=== PATIENT | male | born 1935 | race Caucasian/White ===

== ENCOUNTER 2017-08-16 10:47 | Outpatient (CLI) | payer MEDICARE ==
--- NOTE | 2017-08-16 15:40 | CT ---
CTA OF THE ABDOMEN AND PELVIS WITH BILATERAL LOWER EXTREMITY RUNOFF UTILIZING IV CONTRAST AND 3D REF ORMATTED IMAGING: INDICATION: Bilateral leg pain for 3 years. FINDINGS: ABDOMEN: There is mild bibasilar atelectasis. No focal hepatic lesion is evident. The adrenal glands appear within normal limits. There is a 6 mm oval hypodensity seen within the pancreatic head on image 67 of series 2. There is mild renal cortical thinning bilaterally. No hydronephrosis is evident. No pathologically enlarged lymph nodes are evident. PELVIS: The prostate is mildly enlarged measuring 4.9 cm. There is scattered diverticula involving the colon without evidence of active diverticulitis. There is a normal appendix in the right lower quadrant. Small bowel appears within normal limits. No fr ee fluid is evident. There are fat-containing bilateral inguinal hernias. OSSEOUS STRUCTURES: There is diffuse osteopenia. There is scattered degenerative and osteoarthritic change. VASCULATURE: There are moderate atherosclerotic calcifications involving the abdominal aorta. There is mild narrowing involving the origins of the celiac and SMA. There is mild narrowing involv ing the proximal left and right renal artery. There is mild narrowing involving the origin of the I MA. There is mild atherosclerotic narrowing involving the distal right common iliac artery as well as th e proximal and distal aspect of the right external iliac artery. Right common femoral artery is wid margarito patent. The bifurcation is patent. The proximal profunda artery is widely patent. There is at herosclerotic irregularity involving the course of the right superficial femoral artery. There is h igh-grade stenosis involving the right superficial femoral artery at the level of the adductor hiatu s. More distally within the right superficial femoral artery is a region of complete occlusion. T here is reconstitution of flow at the level of the proximal right popliteal artery. The anterior ti bial artery and tibioperoneal trunk appear patent. There is 3-vessel runoff to the level of the rig ht ankle. Left common iliac artery demonstrates mild atherosclerotic irregularity. There is mild narrowing in volving the origin of the left external iliac artery at the bifurcation. There is moderate narrowin g involving the distal left external iliac artery on image 122 series 2. There is mild atherosclero tic irregularity involving the left common femoral artery. The bifurcation is widely patent. There is mild narrowing involving the proximal left superficial femoral artery. There is complete occlus ion of the distal left superficial femoral artery just proximal to the adductor hiatus. There is re constitution of flow within the proximal popliteal artery on the left. The tibioperoneal trunk and anterior tibial artery appear patent. There is 3-vessel runoff to the level of the ankle. IMPRESSION: 1. 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 2. Mild atherosclerotic narrowing involving the origins of the celiac, SMA, and both renal arteries . 3. Colonic diverticulosis. 4. Prostate enlargement. 5. Fat-containing inguinal hernias. POS: NIKKY
[2017-08-16] MEDS ORDERED: Iopamidol 370 76% 100 ML VIAL ONE (16:39)
== END 2017-08-16 10:48 | disposition home or self-care (01) ==
LOC: CT 10:47
PROVIDERS: ATTEND Thoracic Surgery (Cardiothoracic Vascular Surgery)
DX: R09.89 Other specified symptoms and signs involving the circulatory and respiratory systems (principal); I70.213 Atherosclerosis of native arteries of extremities with intermittent claudication, bilateral legs; I70.1 Atherosclerosis of renal artery; K57.10 Diverticulosis of small intestine without perforation or abscess without bleeding; N40.0 Benign prostatic hyperplasia without lower urinary tract symptoms; K40.90 Unilateral inguinal hernia, without obstruction or gangrene, not specified as recurrent
CPT/HCPCS: 75635

== ENCOUNTER 2018-08-14 11:33 | Outpatient (CLI) | payer MEDICARE ==
--- NOTE | 2018-08-14 16:04 | MRI ---
MRI BRAIN WITH AND WITHOUT CONTRAST: DATE: 08/14/18 HISTORY: 82-year-old male with R51, occipital headache. COMPARISON: No prior MRIs of the brain. There is a CT angiogram of the neck of 04/06/17. TECHNIQUE: Multiple sequences obtained in axial, sagittal, and coronal planes; pre and post IV injection of gado linium-based contrast agent. FINDINGS: What was thought to be a vascular mass in the right foramen magnum on that previous CTA (without the benefit of a noncontrast CT scan to compare with the postcontrast scan), is demonstrated by this MRI to be an approximately 3.2 x 2.9 x 1.4 cm heterogeneously strongly enhancing dural based extra-axial mass arising from the right inner cortical surface of the basiocciput, with anteror edge of tumor at midline at the inferior tip of the clivus, and posterior aspect at the posterior edge of the right oc cipital condyle. It chronically compresses, deforms, and displaces to the left, the medulla and its j unction with the upper cervical spinal cord. The mass is isointense to brain parenchyma on precontras t T1 WI, heterogeneously slightly hyperintense relative to brain parenchyma on FLAIR, and heterogeneo usly very hypointense relative to the brain parenchyma on T2 WI. It contains numerous small calcifica tions. There is no vasogenic edema in the adjacent, displaced brainstem or right cerebellar tonsil. Incidentally, review of the CT angiogram of 04/06/17 demonstrates a tiny round metallic foreign body embedded within the posterior aspect of the right pinna. This causes magnetic susceptibility blowout artifact, which does not affect the images of the brain parenchyma. There is mild to moderate dilation of the lateral and third ventricles. This is probably on an ex vac uo basis due to central parenchymal volume loss rather than a mild case of normal pressure hydrocepha cristian. Chronic ischemic white matter changes in the periventricular white matter are mild. There is dif fuse brain parenchymal volume loss. No abnormal intra-axial enhancement, mass, mass effect, midline s hift, or extra-axial fluid collection. IMPRESSION: 1. A moderate sized right-sided calcified meningioma occupying at least 50% of the cross-sectional a rose of foramen magnum, chronically impinging on and displacing the medulla and upper spinal cord to t he left. No associated vasogenic edema. 2. Age-related involutional changes of the brain. ADWOA Giraldo POS: NIKKY
== END 2018-08-14 11:34 | disposition home or self-care (01) ==
LOC: BICMRI 11:33
PROVIDERS: ATTEND Family Medicine
DX: R51 Headache (principal); D32.0 Benign neoplasm of cerebral meninges
CPT/HCPCS: 70553

== ENCOUNTER 2019-07-02 19:40 | Emergency (ER) | payer MEDICARE ==
[2019-07-02 21:21] LABS: #Lymphocytes 2.1 thou/uL (1.20-3.40); #Monocytes 0.8 thou/uL (0.11-0.59); #Neutrophils 6.8 thou/uL (1.40-6.50); %Basophils 0.3 % (0.0-1.0); %Eosinophils 0.3 % (0.0-10.0); %Lymphocytes 21.4 % (21.0-51.0); %Monocytes 8.5 % (0.0-10.0); %Neutrophils 69.6 % (42.0-75.0); Hemoglobin 13.6 g/dL (14.0-18.0); Mean Corpuscular Hemoglobin 29.6 pg (27.0-31.0); Mean Corpuscular Volume 89.8 fL (78.0-98.0); Mean Platelet Volume 7.9 fL (7.4-10.4); Platelet Count 191 thou/uL (130-400); RBC Distribution Width 12.1 % (11.5-14.5); Red Blood Cell (RBC) Count 4.59 mill/uL (4.70-6.10); White Blood Cell (WBC) Count 9.7 thou/uL (4.8-10.8)
[2019-07-02 21:27] LABS: Bacteria/HPF None Seen HPF (None Seen); Bilirubin Negative (Negative); Calcium Oxalate Crystals 3+ HPF (None Seen); Clarity Clear (Clear); Glucose, Urine (Dipstick) Normal (Negative); Leukocyte 75 Leu/uL (Negative); Nitrite Negative (Negative); Protein, Urine (Dipstick) 30 mg/dL (Neg-Trace); Squamous Epithelial None Seen HPF (0-3); Urobilinogen 3 mg/dL (Less than 2)
[2019-07-02 21:33] LABS: Amphetamine Not Detected (NotDetected); Barbiturates Screen Not Detected (NotDetected); Benzodiazepine Screen Not Detected (NotDetected); Cocaine Metabolite Screen Not Detected (NotDetected); Medtox Control Line Valid? VALID (VALID); Medtox Reader # READER 1; Methadone Not Detected (NotDetected); Methamphetamine Not Detected (NotDetected); Opiate Screen Not Detected (NotDetected); Oxycodone Screen Not Detected (NotDetected); Phencyclidine (PCP) Not Detected (NotDetected); THC/Cannabinoid Screen Not Detected (NotDetected); Tricyclic Screen Not Detected (NotDetected)
[2019-07-02 21:40] LABS: Blood, Urine Trace (Negative)
[2019-07-02 21:49] LABS: Acetaminophen Less than 6.0 mcg/mL (10.0-30.0); Alcohol Less than 10 mg/dL (Less than 10); Salicylate Less than 8.0 mg/dL (15.0-30.0)
[2019-07-02 21:51] LABS: ALT (SGPT) 17 U/L (8-55); AST (SGOT) 18 U/L (5-34); Albumin 4.5 g/dL (3.4-4.8); Alkaline Phosphatase 104 U/L (40-150); Anion Gap 14 mmol/L (10-20); BUN (Urea Nitrogen) 25 mg/dL (8.4-25.7); Bilirubin, Total 1.1 mg/dL (0.2-1.2); CK (CPK) 81 U/L (30-200); Calc. Creatinine Clearance 0 mL/min (70-130); Calcium 9.9 mg/dL (7.8-10.44); Carbon Dioxide 21 mmol/L (23-31); Chloride 107 mmol/L (98-107); Estimated GFR-MDRD 52; Globulin 2.8 g/dL (2.4-3.5); Glucose 92 mg/dL (83-110); Potassium 4.1 mmol/L (3.5-5.1); Protein, Total 7.3 g/dL (5.8-8.1); Sodium 138 mmol/L (136-145)
== END 2019-07-03 01:52 ==
LOC: ERS 19:40
DX: F29 Unspecified psychosis not due to a substance or known physiological condition (principal); E78.5 Hyperlipidemia, unspecified; E78.00 Pure hypercholesterolemia, unspecified; I10 Essential (primary) hypertension; N40.0 Benign prostatic hyperplasia without lower urinary tract symptoms; Z87.891 Personal history of nicotine dependence; Z79.899 Other long term (current) drug therapy
CPT/HCPCS: 36415; 80053; 80306; 80307; 81003; 81015; 82550; 84443; 84484; 85025; 93005

== ENCOUNTER 2022-06-27 14:48 | Inpatient (IN) | payer MEDICARE ==
[~2022-06-27 14:48] MED LIST: Iopamidol 370 76% 100 ML VIAL ONE
[2022-06-27 15:31] LABS: #Lymphocytes 1.8 thou/uL (1.20-3.40); #Monocytes 0.9 thou/uL (0.11-0.59); #Neutrophils 7.9 thou/uL (1.40-6.50); %Basophils 0.3 % (0.0-1.0); %Eosinophils 0.3 % (0.0-10.0); %Lymphocytes 17.2 % (21.0-51.0); %Monocytes 8.4 % (0.0-10.0); %Neutrophils 73.7 % (42.0-75.0); Hemoglobin 11.5 g/dL (14.0-18.0); Mean Corpuscular HGB CONC 32.3 g/dL (32.0-36.0); Mean Corpuscular Hemoglobin 30.6 pg (27.0-31.0); Mean Corpuscular Volume 94.8 fL (78.0-98.0); Mean Platelet Volume 8.4 fL (7.4-10.4); Platelet Count 300 thou/uL (130-400); RBC Distribution Width 14.4 % (11.5-14.5); Red Blood Cell (RBC) Count 3.75 mill/uL (4.70-6.10); White Blood Cell (WBC) Count 10.7 thou/uL (4.8-10.8)
[2022-06-27 16:07] LABS: ALT (SGPT) 18 U/L (8-55); AST (SGOT) 31 U/L (5-34); Albumin 3.5 g/dL (3.4-4.8); Alkaline Phosphatase 100 U/L (40-110); Anion Gap 16 mmol/L (10-20); BUN (Urea Nitrogen) 15 mg/dL (8.4-25.7); Bilirubin, Total 1.8 mg/dL (0.2-1.2); Calc. Creatinine Clearance 0 mL/min (70-130); Calcium 9.4 mg/dL (7.8-10.44); Carbon Dioxide 21 mmol/L (23-31); Chloride 104 mmol/L (98-107); Estimated GFR 67; Globulin 3.3 g/dL (2.4-3.5); Glucose 90 mg/dL (83-110); Potassium 4.4 mmol/L (3.5-5.1); Protein, Total 6.8 g/dL (5.8-8.1); Sodium 137 mmol/L (136-145)
[2022-06-27 16:29] LABS: Bacteria/HPF 4+ HPF (None Seen); Bilirubin Negative (Negative); Blood, Urine Negative (Negative); Clarity Clear (Clear); Glucose, Urine (Dipstick) Normal (Negative); Ketone, Urine Negative (Negative); Leukocyte 75 Leu/uL (Negative); Nitrite Negative (Negative); Protein, Urine (Dipstick) 20 mg/dL (Neg-Trace); RBC/HPF 0-3 HPF (0-3); Specific Gravity, Urine 1.018 (1.002-1.036); Squamous Epithelial None Seen HPF (0-3)
[2022-06-27] MEDS ORDERED: HYDROcodone/Acetaminophen 5/325 mg Tablet ONE (16:56)
[2022-06-27] MEDS ORDERED: cefTRIAXone\\ROCEPHIN 1 GM VIAL ONE (18:16)
[2022-06-27] MEDS ORDERED: Dextrose 5% in Water 1,000 ML IV PRN (21:56)
[2022-06-27] MEDS ORDERED: Morphine 2 MG/ML VIAL SLOW IVP PRN (21:56)
[2022-06-27] MEDS ORDERED: Ondansetron ODT 4 MG TAB PO PRN (21:56)
[2022-06-27] MEDS ORDERED: Ondansetron PF 4 MG/2 ML Vial IVP PRN (21:56)
[2022-06-27] MEDS ORDERED: Dextrose 50% Abboject 50 ML SYRINGE SLOW IVP PRN (21:56)
[2022-06-27] MEDS ORDERED: Morphine 4 MG/ML VIAL SLOW IVP PRN (21:56)
[2022-06-27] MEDS ORDERED: Ibuprofen 200 MG TAB PO PRN (21:58)
[2022-06-27] MEDS: Acetaminophen 325 MG TAB PO SCH (23:59)
[2022-06-28] MEDS: hydrALAZINE 20 MG/ML VIAL SLOW IVP PRN ×2 (00:02→12:00)
[2022-06-28 00:55] VITALS: BMI 23.6
[2022-06-28] MEDS: Acetaminophen/Codeine 30-300mg Tablet PO PRN (02:35)
[2022-06-28] MEDS: Cyclobenzaprine 10 MG TAB PO PRN (02:36)
[2022-06-28 03:21] LABS: SARS-CoV-2 NAA Rapid Test DETECTED (NotDetected)
[2022-06-28 06:18] LABS: #Lymphocytes 1.8 thou/uL (1.20-3.40); #Monocytes 0.8 thou/uL (0.11-0.59); #Neutrophils 6.2 thou/uL (1.40-6.50); %Basophils 0.1 % (0.0-1.0); %Eosinophils 0.3 % (0.0-10.0); %Lymphocytes 20.1 % (21.0-51.0); %Monocytes 9.3 % (0.0-10.0); %Neutrophils 70.2 % (42.0-75.0); Hemoglobin 10.8 g/dL (14.0-18.0); Mean Corpuscular HGB CONC 32.7 g/dL (32.0-36.0); Mean Corpuscular Hemoglobin 31.2 pg (27.0-31.0); Mean Corpuscular Volume 95.4 fL (78.0-98.0); Mean Platelet Volume 8.3 fL (7.4-10.4); Platelet Count 226 thou/uL (130-400); RBC Distribution Width 14.3 % (11.5-14.5); Red Blood Cell (RBC) Count 3.46 mill/uL (4.70-6.10); White Blood Cell (WBC) Count 8.9 thou/uL (4.8-10.8)
[2022-06-28 06:38] LABS: Anion Gap 14 mmol/L (10-20); BUN (Urea Nitrogen) 14 mg/dL (8.4-25.7); Calc. Creatinine Clearance 77 mL/min (70-130); Calcium 8.7 mg/dL (7.8-10.44); Carbon Dioxide 20 mmol/L (23-31); Chloride 107 mmol/L (98-107); Estimated GFR 89; Glucose 71 mg/dL (83-110); Potassium 3.4 mmol/L (3.5-5.1); Sodium 138 mmol/L (136-145)
[2022-06-28] MEDS: Acetaminophen 325 MG TAB PO SCH ×3 (06:56→17:48)
[2022-06-28] MEDS ORDERED: Morphine 2 MG/ML VIAL SLOW IVP PRN (07:37)
[2022-06-28 08:31] LABS: Magnesium 1.9 mg/dL (1.6-2.6)
[2022-06-28] MEDS: Tamsulosin HCl 0.4 MG CAP PO SCH (08:41)
[2022-06-28] MEDS: Famotidine 20 MG TAB PO SCH ×2 (08:41→21:01)
[2022-06-28] MEDS ORDERED: Amlodipine 5 MG TAB PO SCH (09:00)
[2022-06-28] MEDS ORDERED: Tamsulosin HCl 0.4 MG CAP PO SCH (09:00)
[2022-06-28] MEDS ORDERED: Potassium Phosphate 30 MMOL in Sodium Chloride 0.9% 250 ML 250 ML IVPB SCH (10:00)
[2022-06-28] MEDS ORDERED: cefTRIAXone\\ROCEPHIN 1 GM in Sodium Chloride 0.9% 100 ML IVPB SCH (15:00)
[2022-06-28] MEDS: AMPicillin 1 GM in Sodium Chloride 0.9% 100 ML IVPB SCH (17:47)
[2022-06-29] MEDS: Acetaminophen 325 MG TAB PO SCH ×4 (00:15→18:37)
[2022-06-29] MEDS: AMPicillin 1 GM in Sodium Chloride 0.9% 100 ML IVPB SCH ×4 (00:16→19:20)
[2022-06-29] MEDS: hydrALAZINE 20 MG/ML VIAL SLOW IVP PRN ×2 (00:31→09:29)
[2022-06-29 05:31] LABS: #Lymphocytes 1.8 thou/uL (1.20-3.40); #Neutrophils 8.6 thou/uL (1.40-6.50); %Basophils 0.1 % (0.0-1.0); %Eosinophils 0.1 % (0.0-10.0); %Monocytes 8.8 % (0.0-10.0); Hemoglobin 10.5 g/dL (14.0-18.0); Mean Corpuscular Hemoglobin 29.1 pg (27.0-31.0); Mean Corpuscular Volume 94.1 fL (78.0-98.0); Mean Platelet Volume 8.1 fL (7.4-10.4); Platelet Count 269 thou/uL (130-400); RBC Distribution Width 14.5 % (11.5-14.5); White Blood Cell (WBC) Count 11.5 thou/uL (4.8-10.8)
[2022-06-29 06:09] LABS: Anion Gap 13 mmol/L (10-20); BUN (Urea Nitrogen) 13 mg/dL (8.4-25.7); Calc. Creatinine Clearance 74 mL/min (70-130); Calcium 8.5 mg/dL (7.8-10.44); Carbon Dioxide 22 mmol/L (23-31); Chloride 109 mmol/L (98-107); Estimated GFR 88; Glucose 89 mg/dL (83-110); Magnesium 1.8 mg/dL (1.6-2.6); Phosphorus 2.9 mg/dL (2.3-4.7); Potassium 4.1 mmol/L (3.5-5.1); Sodium 140 mmol/L (136-145)
[2022-06-29] MEDS: Famotidine 20 MG TAB PO SCH ×2 (09:28→20:50)
[2022-06-29] MEDS: Amlodipine 5 MG TAB PO SCH (09:29)
[2022-06-29] MEDS: Tamsulosin HCl 0.4 MG CAP PO SCH (09:29)
[2022-06-29] MEDS ORDERED: ceFAZolin 2 GM/Dextrose 50 ML 2 GM in Premix Bag 1 BAG IVPB SCH (11:45)
[2022-06-29] MEDS ORDERED: fentaNYL Citrate/PF 100 MCG/2 ML SYRINGE ONE (15:50)
[2022-06-29] MEDS ORDERED: Calcium Chloride 1 GM/10 ML Abboject SYRINGE ONE (16:32)
[2022-06-29] MEDS ORDERED: ePHEDrine 50 MG/ML VIAL ONE (16:32)
[2022-06-29] MEDS ORDERED: PROPOFOL 200 MG/20 ML VIAL ONE (16:32)
[2022-06-29] MEDS ORDERED: Dexamethasone 20 MG/5 ML VIAL ONE (16:32)
[2022-06-29] MEDS ORDERED: Phenylephrine 10 MG/ML VIAL ONE (16:32)
[2022-06-29] MEDS ORDERED: Ondansetron PF 4 MG/2 ML Vial ONE (16:32)
[2022-06-29] MEDS ORDERED: Glycopyrrolate 0.2 MG/ML 5 ML SYRINGE ONE (16:32)
[2022-06-29] MEDS ORDERED: Esmolol 100 MG/10 ML VIAL ONE (16:32)
[2022-06-29] MEDS ORDERED: Lidocaine 1% PF 5 ML VIAL ONE (16:32)
[2022-06-29] MEDS ORDERED: PACU-Morphine 4MG/ML VIAL SLOW IVP PRN (17:41)
[2022-06-29] MEDS ORDERED: Meperidine HCl/PF 25 MG/ML VIAL SLOW IVP PRN (17:41)
[2022-06-29] MEDS ORDERED: Promethazine HCl 25 MG/ML VIAL IVPB PRN (17:41)
[2022-06-29] MEDS ORDERED: Promethazine HCl 25 MG/ML VIAL IM PRN (17:41)
[2022-06-29] MEDS ORDERED: Fentanyl 100 MCG/2 ML VIAL ONE ×2 (17:43→18:38)
[2022-06-29] MEDS ORDERED: Sodium Chloride 0.9% 1,000 ML IV SCH (18:15)
[2022-06-29] MEDS: Acetaminophen/Codeine 30-300mg Tablet PO PRN (20:50)
[2022-06-29] MEDS: CEFAZOLIN 2 GM in Sodium Chloride 0.9% 100 ML IVPB SCH (20:58)
[2022-06-30] MEDS: AMPicillin 1 GM in Sodium Chloride 0.9% 100 ML IVPB SCH ×2 (00:06→06:23)
[2022-06-30] MEDS: Acetaminophen 325 MG TAB PO SCH ×5 (00:07→23:37)
[2022-06-30] MEDS: CEFAZOLIN 2 GM in Sodium Chloride 0.9% 100 ML IVPB SCH (05:40)
[2022-06-30 06:15] LABS: Hemoglobin 11.1 g/dL (14.0-18.0)
[2022-06-30] MEDS: Acetaminophen/Codeine 30-300mg Tablet PO PRN ×2 (09:02→20:17)
[2022-06-30] MEDS: Cyclobenzaprine 10 MG TAB PO PRN (09:04)
[2022-06-30] MEDS: Polyethylene Glycol 3350 17 GM Packet PO SCH (09:09)
[2022-06-30] MEDS: Atorvastatin Calcium 40 MG TAB PO SCH (09:09)
[2022-06-30] MEDS: Amlodipine 5 MG TAB PO SCH (09:10)
[2022-06-30] MEDS: Famotidine 20 MG TAB PO SCH ×2 (09:10→20:20)
[2022-06-30] MEDS: Senokot S 8.6-50 MG TAB PO SCH ×2 (09:10→20:21)
[2022-06-30] MEDS: Tamsulosin HCl 0.4 MG CAP PO SCH (09:11)
[2022-06-30] MEDS: Rivaroxaban 2.5 MG TAB PO SCH ×2 (12:29→20:21)
[2022-06-30] MEDS: AMOXicillin 250 MG CAP PO SCH ×2 (17:30→23:37)
[2022-07-01] MEDS: Acetaminophen 325 MG TAB PO SCH (06:41)
[2022-07-01] MEDS: AMOXicillin 250 MG CAP PO SCH ×3 (06:42→21:50)
[2022-07-01] MEDS: Senokot S 8.6-50 MG TAB PO SCH ×2 (09:34→21:51)
[2022-07-01] MEDS: Amlodipine 5 MG TAB PO SCH (09:34)
[2022-07-01] MEDS: Tamsulosin HCl 0.4 MG CAP PO SCH (09:34)
[2022-07-01] MEDS: Atorvastatin Calcium 40 MG TAB PO SCH (09:34)
[2022-07-01] MEDS: Famotidine 20 MG TAB PO SCH ×2 (09:35→21:50)
[2022-07-01] MEDS: Rivaroxaban 2.5 MG TAB PO SCH ×2 (09:35→21:50)
[2022-07-01] MEDS: Polyethylene Glycol 3350 17 GM Packet PO SCH (09:35)
[2022-07-01] MEDS: Acetaminophen/Codeine 30-300mg Tablet PO SCH ×2 (12:14→17:11)
[2022-07-01] MEDS: Gabapentin 100 MG CAP PO SCH ×2 (16:19→21:50)
[2022-07-02] MEDS: Acetaminophen/Codeine 30-300mg Tablet PO SCH ×4 (00:05→17:32)
[2022-07-02] MEDS: AMOXicillin 250 MG CAP PO SCH ×3 (06:12→20:39)
[2022-07-02] MEDS: Gabapentin 100 MG CAP PO SCH ×3 (09:39→20:39)
[2022-07-02] MEDS: Famotidine 20 MG TAB PO SCH ×2 (09:39→20:40)
[2022-07-02] MEDS: Atorvastatin Calcium 40 MG TAB PO SCH (09:39)
[2022-07-02] MEDS: Tamsulosin HCl 0.4 MG CAP PO SCH (09:39)
[2022-07-02] MEDS: Amlodipine 5 MG TAB PO SCH (09:39)
[2022-07-02] MEDS: Rivaroxaban 10 MG TAB PO SCH (09:40)
[2022-07-02] MEDS: Polyethylene Glycol 3350 17 GM Packet PO SCH (09:40)
[2022-07-02] MEDS: Senokot S 8.6-50 MG TAB PO SCH ×2 (09:40→20:39)
[2022-07-02 12:49] LABS: SARS-CoV-2 NAA Rapid Test Not Detected (NotDetected)
[2022-07-02] MEDS: Carvedilol 3.125 MG TAB PO SCH (17:32)
[2022-07-03] MEDS: Acetaminophen/Codeine 30-300mg Tablet PO SCH ×5 (00:33→23:50)
[2022-07-03] MEDS: AMOXicillin 250 MG CAP PO SCH ×2 (05:56→14:38)
[2022-07-03] MEDS: Carvedilol 3.125 MG TAB PO SCH ×2 (08:53→17:35)
[2022-07-03] MEDS: Famotidine 20 MG TAB PO SCH ×2 (08:53→21:39)
[2022-07-03] MEDS: Polyethylene Glycol 3350 17 GM Packet PO SCH (08:53)
[2022-07-03] MEDS: Rivaroxaban 10 MG TAB PO SCH (08:54)
[2022-07-03] MEDS: Senokot S 8.6-50 MG TAB PO SCH ×2 (08:54→21:39)
[2022-07-03] MEDS: Amlodipine 5 MG TAB PO SCH (08:55)
[2022-07-03] MEDS: Gabapentin 100 MG CAP PO SCH ×3 (08:56→21:39)
[2022-07-03] MEDS: Atorvastatin Calcium 40 MG TAB PO SCH (08:56)
[2022-07-03] MEDS: Tamsulosin HCl 0.4 MG CAP PO SCH (08:56)
[2022-07-04] MEDS: Acetaminophen/Codeine 30-300mg Tablet PO SCH ×4 (05:22→23:18)
[2022-07-04] MEDS: Rivaroxaban 10 MG TAB PO SCH (09:59)
[2022-07-04] MEDS: Gabapentin 100 MG CAP PO SCH ×3 (09:59→21:20)
[2022-07-04] MEDS: Tamsulosin HCl 0.4 MG CAP PO SCH (09:59)
[2022-07-04] MEDS: Senokot S 8.6-50 MG TAB PO SCH ×2 (10:00→21:20)
[2022-07-04] MEDS: Famotidine 20 MG TAB PO SCH ×2 (10:00→21:21)
[2022-07-04] MEDS: Amlodipine 5 MG TAB PO SCH (10:00)
[2022-07-04] MEDS: Atorvastatin Calcium 40 MG TAB PO SCH (10:00)
[2022-07-04] MEDS: Carvedilol 3.125 MG TAB PO SCH ×2 (10:00→18:26)
[2022-07-04] MEDS: Polyethylene Glycol 3350 17 GM Packet PO SCH (10:03)
[2022-07-05] MEDS: Acetaminophen/Codeine 30-300mg Tablet PO SCH ×3 (05:03→19:21)
[2022-07-05] MEDS: Atorvastatin Calcium 40 MG TAB PO SCH (10:09)
[2022-07-05] MEDS: Carvedilol 3.125 MG TAB PO SCH (10:09)
[2022-07-05] MEDS: Gabapentin 100 MG CAP PO SCH ×3 (10:09→21:16)
[2022-07-05] MEDS: Tamsulosin HCl 0.4 MG CAP PO SCH (10:11)
[2022-07-05] MEDS: Amlodipine 5 MG TAB PO SCH (10:11)
[2022-07-05] MEDS: Polyethylene Glycol 3350 17 GM Packet PO SCH (10:11)
[2022-07-05] MEDS: Senokot S 8.6-50 MG TAB PO SCH ×2 (10:11→21:17)
[2022-07-05] MEDS: Rivaroxaban 10 MG TAB PO SCH (10:11)
[2022-07-06] MEDS: Acetaminophen/Codeine 30-300mg Tablet PO SCH ×5 (00:30→23:34)
[2022-07-06] MEDS: Senokot S 8.6-50 MG TAB PO SCH ×3 (09:04→20:57)
[2022-07-06] MEDS: Atorvastatin Calcium 40 MG TAB PO SCH (09:04)
[2022-07-06] MEDS: Polyethylene Glycol 3350 17 GM Packet PO SCH (09:04)
[2022-07-06] MEDS: Tamsulosin HCl 0.4 MG CAP PO SCH (09:05)
[2022-07-06] MEDS: Amlodipine 10 MG TAB PO SCH (09:05)
[2022-07-06] MEDS: Gabapentin 100 MG CAP PO SCH ×3 (09:05→20:52)
[2022-07-06] MEDS: Rivaroxaban 10 MG TAB PO SCH (09:06)
[2022-07-06] MEDS: Carvedilol 3.125 MG TAB PO SCH (18:18)
[2022-07-07] MEDS: Acetaminophen/Codeine 30-300mg Tablet PO SCH ×3 (03:55→16:40)
[2022-07-07] MEDS: Polyethylene Glycol 3350 17 GM Packet PO SCH (08:06)
[2022-07-07] MEDS: Rivaroxaban 10 MG TAB PO SCH (08:07)
[2022-07-07] MEDS: Gabapentin 100 MG CAP PO SCH ×3 (08:07→20:56)
[2022-07-07] MEDS: Atorvastatin Calcium 40 MG TAB PO SCH (08:07)
[2022-07-07] MEDS: Senokot S 8.6-50 MG TAB PO SCH ×2 (08:07→20:56)
[2022-07-07] MEDS: Tamsulosin HCl 0.4 MG CAP PO SCH (08:07)
[2022-07-07] MEDS: Amlodipine 10 MG TAB PO SCH (08:08)
[2022-07-07] MEDS: Carvedilol 3.125 MG TAB PO SCH ×2 (08:08→16:38)
[2022-07-08] MEDS: Acetaminophen/Codeine 30-300mg Tablet PO SCH ×3 (00:43→11:40)
[2022-07-08] MEDS: Carvedilol 3.125 MG TAB PO SCH (07:59)
[2022-07-08] MEDS: Polyethylene Glycol 3350 17 GM Packet PO SCH (08:00)
[2022-07-08] MEDS: Amlodipine 10 MG TAB PO SCH (08:00)
[2022-07-08] MEDS: Atorvastatin Calcium 40 MG TAB PO SCH (08:01)
[2022-07-08] MEDS: Tamsulosin HCl 0.4 MG CAP PO SCH (08:01)
[2022-07-08] MEDS: Rivaroxaban 10 MG TAB PO SCH (08:01)
[2022-07-08] MEDS: Gabapentin 100 MG CAP PO SCH ×2 (08:01→14:26)
[2022-07-08] MEDS: Senokot S 8.6-50 MG TAB PO SCH (08:01)
[2022-07-08 16:10] VITALS: BP 130/61; TEMP 98.1
== END 2022-07-08 16:40 | DRG 480 ==
LOC: ERS 14:48 → SJJU 21:50
PROVIDERS: ADMIT Student in an Organized Health Care Education/Training Program; ATTEND Surgery
PROC: 0QS604Z Reposition Right Upper Femur with Internal Fixation Device, Open Approach (ICD-10-PCS; principal; 2022-06-29)
DX: S72.141A Displaced intertrochanteric fracture of right femur, initial encounter for closed fracture (principal); U07.1 COVID-19; N39.0 Urinary tract infection, site not specified; E78.00 Pure hypercholesterolemia, unspecified; I10 Essential (primary) hypertension; N40.0 Benign prostatic hyperplasia without lower urinary tract symptoms; W18.30XA Fall on same level, unspecified, initial encounter; H54.8 Legal blindness, as defined in USA; I65.23 Occlusion and stenosis of bilateral carotid arteries; Z87.891 Personal history of nicotine dependence; Z79.01 Long term (current) use of anticoagulants; Z79.899 Other long term (current) drug therapy
CPT/HCPCS: 36415; 70450; 70551; 71045; 72125; 72170; 76000; 80048; 80053; 81003; 81015; 83735; 84100; 84443; 84484; 85014; 85018; 85025; 85379; 86850; 86900; 86901; 87077; 87086; 87186; 93005; 93010; 93306; 93880; 94760; 96374; C1713; J0290; J0360; J0690; J0696; J1100; J2370; J2405; J2704; J3010; J3490; J7050; Q9967; U0002

== ENCOUNTER 2023-08-14 06:15 | Inpatient (IN) | payer MEDICARE ==
[2023-08-14] MEDS ORDERED: Ondansetron PF 4 MG/2 ML Vial IVP PRN (07:57)
[2023-08-14] MEDS ORDERED: Ondansetron ODT 4 MG TAB PO PRN (07:57)
[2023-08-14] MEDS ORDERED: Acetaminophen 325 MG TAB PO PRN (07:57)
[2023-08-14] MEDS ORDERED: Morphine 2 MG/ML VIAL SLOW IVP PRN ×2 (07:57)
[2023-08-14 09:01] VITALS: BMI 24.7
[2023-08-14] MEDS: Tamsulosin HCl 0.4 MG CAP PO SCH (09:37)
[2023-08-14] MEDS: Famotidine 20 MG TAB PO SCH ×2 (09:37→20:31)
[2023-08-14] MEDS: Azithromycin 500 MG in Sodium Chloride 0.9% 250 ML 250 ML IVPB SCH (09:37)
[2023-08-14] MEDS: Aspirin 81 mg Enteric Coated Tablet PO SCH (09:37)
[2023-08-14 10:19] LABS: Troponin I 1.295 ng/mL (< 0.028)
[2023-08-14] MEDS ORDERED: FLU VACC QS2023(65UP)/MF59C/PF 60 MCG/0.5 ML SYRINGE IM ONE (13:15)
[2023-08-14] MEDS: Furosemide 40 MG/4 ML VIAL SLOW IVP SCH (14:36)
[2023-08-14 14:37] LABS: Troponin I 1.659 ng/mL (< 0.028)
[2023-08-14] MEDS: Atorvastatin Calcium 40 MG TAB PO SCH (20:30)
[2023-08-14] MEDS: Melatonin 3 MG TAB PO PRN (20:31)
[2023-08-15 04:22] LABS: #Monocytes 0.8 thou/uL (0.11-0.59); #Neutrophils 4.1 thou/uL (1.40-6.50); %Basophils 0.3 % (0.0-1.0); %Lymphocytes 24.7 % (21.0-51.0); %Monocytes 11.5 % (0.0-10.0); %Neutrophils 63.3 % (42.0-75.0); Mean Corpuscular HGB CONC 30.4 g/dL (32.0-36.0); Mean Corpuscular Volume 88.8 fl (78.0-98.0); Mean Platelet Volume 10.8 fL (7.4-10.4); Platelet Count 211 10x3/uL (130-400); RBC Distribution Width 19.8 % (11.5-14.5); Red Blood Cell (RBC) Count 2.59 mill/uL (4.70-6.10); White Blood Cell (WBC) Count 6.5 10x3/uL (4.8-10.8)
[2023-08-15 04:41] LABS: ALT (SGPT) 9 U/L (8-55); AST (SGOT) 15 U/L (5-34); Albumin 3.4 g/dL (3.4-4.8); Alkaline Phosphatase 65 U/L (40-110); Anion Gap 13 mmol/L (10-20); BUN (Urea Nitrogen) 22 mg/dL (8.4-25.7); Bilirubin, Total 0.6 mg/dL (0.2-1.2); Calc. Creatinine Clearance 46 mL/min (70-130); Calcium 8.7 mg/dL (7.8-10.44); Carbon Dioxide 22 mmol/L (23-31); Chloride 106 mmol/L (98-107); Estimated GFR 57; Globulin 2.1 g/dL (2.4-3.5); Glucose 98 mg/dL (83-110); Potassium 3.2 mmol/L (3.5-5.1); Protein, Total 5.5 g/dL (5.8-8.1); Sodium 138 mmol/L (136-145)
[2023-08-15] MEDS: cefTRIAXone\\ROCEPHIN 1 GM in Sodium Chloride 0.9% 100 ML IVPB SCH (05:22)
[2023-08-15] MEDS: Furosemide 40 MG/4 ML VIAL SLOW IVP SCH ×2 (05:22→16:20)
[2023-08-15 06:08] LABS: Magnesium 1.9 mg/dL (1.6-2.6)
[2023-08-15] MEDS ORDERED: Electrolyte Replacement Protocol FS PRN (06:15)
[2023-08-15] MEDS ORDERED: Potassium Chloride 20 MEQ TAB PO SCH (06:15)
[2023-08-15 07:42] LABS: Iron Binding Capacity, Total 278 mcg/dL (261-462)
[2023-08-15] MEDS ORDERED: Magnesium 2 GM/50 ML(in water) 2 GM in Premix Bag 1 BAG IVPB SCH (08:00)
[2023-08-15] MEDS: Famotidine 20 MG TAB PO SCH (09:23)
[2023-08-15] MEDS: Rivaroxaban 2.5 MG TAB PO SCH ×2 (09:23→20:05)
[2023-08-15] MEDS: Aspirin 81 mg Enteric Coated Tablet PO SCH (09:24)
[2023-08-15] MEDS: Tamsulosin HCl 0.4 MG CAP PO SCH (09:24)
[2023-08-15] MEDS: Potassium Chloride 20 MEQ in Premix Bag 1 BAG IVPB SCH ×2 (09:58→12:55)
[2023-08-15] MEDS: Azithromycin 500 MG in Sodium Chloride 0.9% 250 ML 250 ML IVPB SCH (11:12)
[2023-08-15] MEDS ORDERED: Magnevist 469MG/ML 20 ML VIAL ONE (11:20)
[2023-08-15 15:03] LABS: Iron Less than 8 ug/dL (65-175)
[2023-08-15 16:17] LABS: Hematocrit 25.4 % (42.0-52.0); Hemoglobin 7.7 g/dL (14.0-18.0)
[2023-08-15 19:15] LABS: Anion Gap 16 mmol/L (10-20); Carbon Dioxide 19 mmol/L (23-31); Chloride 108 mmol/L (98-107); Potassium 4.3 mmol/L (3.5-5.1); Sodium 139 mmol/L (136-145)
[2023-08-15] MEDS: Melatonin 3 MG TAB PO PRN (20:04)
[2023-08-15] MEDS: Atorvastatin Calcium 40 MG TAB PO SCH (20:05)
[2023-08-16] MEDS: Furosemide 40 MG/4 ML VIAL SLOW IVP SCH (05:57)
[2023-08-16] MEDS: cefTRIAXone\\ROCEPHIN 1 GM in Sodium Chloride 0.9% 100 ML IVPB SCH (05:57)
[2023-08-16] MEDS: Azithromycin 500 MG in Sodium Chloride 0.9% 250 ML 250 ML IVPB SCH (09:05)
[2023-08-16] MEDS: Famotidine 20 MG TAB PO SCH (09:06)
[2023-08-16] MEDS: Rivaroxaban 2.5 MG TAB PO SCH ×2 (09:06→20:37)
[2023-08-16] MEDS: Tamsulosin HCl 0.4 MG CAP PO SCH (09:06)
[2023-08-16] MEDS: Aspirin 81 mg Enteric Coated Tablet PO SCH (09:06)
[2023-08-16 09:31] LABS: #Monocytes 0.7 thou/uL (0.11-0.59); %Basophils 0.3 % (0.0-1.0); %Lymphocytes 12.1 % (21.0-51.0); %Monocytes 9.2 % (0.0-10.0); Hematocrit 25.9 % (42.0-52.0); Hemoglobin 7.7 g/dL (14.0-18.0); Mean Corpuscular HGB CONC 29.7 g/dL (32.0-36.0); Mean Corpuscular Volume 90.9 fl (78.0-98.0); Mean Platelet Volume 10.6 fL (7.4-10.4); Platelet Count 220 10x3/uL (130-400); Red Blood Cell (RBC) Count 2.85 mill/uL (4.70-6.10); White Blood Cell (WBC) Count 7.7 10x3/uL (4.8-10.8)
[2023-08-16 09:57] LABS: ALT (SGPT) 11 U/L (8-55); AST (SGOT) 16 U/L (5-34); Albumin 3.7 g/dL (3.4-4.8); Alkaline Phosphatase 73 U/L (40-110); Anion Gap 14 mmol/L (10-20); BUN (Urea Nitrogen) 24 mg/dL (8.4-25.7); Bilirubin, Total 0.5 mg/dL (0.2-1.2); Calc. Creatinine Clearance 41 mL/min (70-130); Calcium 8.8 mg/dL (7.8-10.44); Carbon Dioxide 23 mmol/L (23-31); Chloride 106 mmol/L (98-107); Estimated GFR 49; Globulin 2.4 g/dL (2.4-3.5); Glucose 109 mg/dL (83-110); Potassium 3.8 mmol/L (3.5-5.1); Protein, Total 6.1 g/dL (5.8-8.1); Sodium 139 mmol/L (136-145)
[2023-08-16] MEDS: Melatonin 3 MG TAB PO PRN (20:37)
[2023-08-16] MEDS: Atorvastatin Calcium 40 MG TAB PO SCH (20:37)
[2023-08-17] MEDS: cefTRIAXone\\ROCEPHIN 1 GM in Sodium Chloride 0.9% 100 ML IVPB SCH (05:35)
[2023-08-17 07:35] LABS: #Monocytes 0.7 thou/uL (0.11-0.59); #Neutrophils 5.1 thou/uL (1.40-6.50); %Basophils 0.1 % (0.0-1.0); %Lymphocytes 15.9 % (21.0-51.0); %Monocytes 9.9 % (0.0-10.0); %Neutrophils 73.7 % (42.0-75.0); Hematocrit 23.6 % (42.0-52.0); Hemoglobin 7.1 g/dL (14.0-18.0); Mean Corpuscular HGB CONC 30.1 g/dL (32.0-36.0); Mean Corpuscular Hemoglobin 27.1 pg (27.0-31.0); Mean Corpuscular Volume 90.1 fl (78.0-98.0); Mean Platelet Volume 10.9 fL (7.4-10.4); Platelet Count 210 10x3/uL (130-400); Red Blood Cell (RBC) Count 2.62 mill/uL (4.70-6.10); White Blood Cell (WBC) Count 6.9 10x3/uL (4.8-10.8)
[2023-08-17 07:57] LABS: Anion Gap 13 mmol/L (10-20); BUN (Urea Nitrogen) 24 mg/dL (8.4-25.7); Calc. Creatinine Clearance 51 mL/min (70-130); Calcium 8.7 mg/dL (7.8-10.44); Carbon Dioxide 23 mmol/L (23-31); Chloride 105 mmol/L (98-107); Estimated GFR 65; Glucose 95 mg/dL (83-110); Potassium 3.7 mmol/L (3.5-5.1); Sodium 137 mmol/L (136-145)
[2023-08-17] MEDS ORDERED: Furosemide 20 MG TAB PO SCH (09:00)
[2023-08-17] MEDS: Rivaroxaban 2.5 MG TAB PO SCH ×2 (09:29→20:19)
[2023-08-17] MEDS: Tamsulosin HCl 0.4 MG CAP PO SCH (09:29)
[2023-08-17] MEDS: Famotidine 20 MG TAB PO SCH (09:29)
[2023-08-17] MEDS: Aspirin 81 mg Enteric Coated Tablet PO SCH (09:29)
[2023-08-17] MEDS: Furosemide 40 MG/4 ML VIAL SLOW IVP SCH (09:30)
[2023-08-17] MEDS: Azithromycin 500 MG in Sodium Chloride 0.9% 250 ML 250 ML IVPB SCH (09:30)
[2023-08-17] MEDS: Ferrous Sulfate 325 MG TAB PO SCH (12:01)
[2023-08-17] MEDS: Melatonin 3 MG TAB PO PRN (20:19)
[2023-08-17] MEDS: Atorvastatin Calcium 40 MG TAB PO SCH (20:19)
[2023-08-18] MEDS: cefTRIAXone\\ROCEPHIN 1 GM in Sodium Chloride 0.9% 100 ML IVPB SCH (05:20)
[2023-08-18 09:54] LABS: #Monocytes 0.7 thou/uL (0.11-0.59); #Neutrophils 6.2 thou/uL (1.40-6.50); %Basophils 0.2 % (0.0-1.0); %Lymphocytes 16.4 % (21.0-51.0); %Neutrophils 75.3 % (42.0-75.0); Hematocrit 25.5 % (42.0-52.0); Hemoglobin 7.5 g/dL (14.0-18.0); Mean Corpuscular HGB CONC 29.4 g/dL (32.0-36.0); Mean Corpuscular Hemoglobin 26.4 pg (27.0-31.0); Mean Corpuscular Volume 89.8 fl (78.0-98.0); Platelet Count 258 10x3/uL (130-400); RBC Distribution Width 19.8 % (11.5-14.5); Red Blood Cell (RBC) Count 2.84 mill/uL (4.70-6.10); White Blood Cell (WBC) Count 8.2 10x3/uL (4.8-10.8)
[2023-08-18 10:11] LABS: Anion Gap 15 mmol/L (10-20); BUN (Urea Nitrogen) 28 mg/dL (8.4-25.7); CRP (Inflammatory) 0.69 mg/dL (= or < 0.5); Calc. Creatinine Clearance 49 mL/min (70-130); Calcium 8.9 mg/dL (7.8-10.44); Carbon Dioxide 22 mmol/L (23-31); Chloride 104 mmol/L (98-107); Estimated GFR 61; Glucose 158 mg/dL (83-110); Potassium 3.7 mmol/L (3.5-5.1); Sodium 137 mmol/L (136-145)
[2023-08-18] MEDS: Azithromycin 500 MG in Sodium Chloride 0.9% 250 ML 250 ML IVPB SCH (10:39)
[2023-08-18] MEDS: Tamsulosin HCl 0.4 MG CAP PO SCH (10:40)
[2023-08-18] MEDS: Rivaroxaban 2.5 MG TAB PO SCH ×2 (10:41→21:41)
[2023-08-18] MEDS: Aspirin 81 mg Enteric Coated Tablet PO SCH (10:41)
[2023-08-18] MEDS: Famotidine 20 MG TAB PO SCH (10:41)
[2023-08-18] MEDS: Ferrous Sulfate 325 MG TAB PO SCH (10:41)
[2023-08-18] MEDS: Furosemide 40 MG/4 ML VIAL SLOW IVP SCH (11:14)
[2023-08-18] MEDS: Atorvastatin Calcium 40 MG TAB PO SCH (21:41)
[2023-08-18] MEDS: Melatonin 3 MG TAB PO PRN (21:43)
[2023-08-19] MEDS: cefTRIAXone\\ROCEPHIN 1 GM in Sodium Chloride 0.9% 100 ML IVPB SCH (04:20)
[2023-08-19 04:38] LABS: #Eosinphils 0.2 thou/uL (0.0-0.7); #Monocytes 0.6 thou/uL (0.11-0.59); #Neutrophils 3.7 thou/uL (1.40-6.50); %Basophils 0.3 % (0.0-1.0); %Lymphocytes 23.6 % (21.0-51.0); %Monocytes 10.8 % (0.0-10.0); Hematocrit 21.7 % (42.0-52.0); Hemoglobin 6.4 g/dL (14.0-18.0); Mean Corpuscular HGB CONC 29.5 g/dL (32.0-36.0); Mean Corpuscular Hemoglobin 26.1 pg (27.0-31.0); Mean Corpuscular Volume 88.6 fl (78.0-98.0); Mean Platelet Volume 11.1 fL (7.4-10.4); Platelet Count 208 10x3/uL (130-400); RBC Distribution Width 19.9 % (11.5-14.5); Red Blood Cell (RBC) Count 2.45 mill/uL (4.70-6.10); White Blood Cell (WBC) Count 5.9 10x3/uL (4.8-10.8)
[2023-08-19 05:07] LABS: Anion Gap 10 mmol/L (10-20); BUN (Urea Nitrogen) 32 mg/dL (8.4-25.7); CRP (Inflammatory) Less than 0.50 mg/dL (= or < 0.5); Calc. Creatinine Clearance 56 mL/min (70-130); Calcium 8.6 mg/dL (7.8-10.44); Carbon Dioxide 28 mmol/L (23-31); Chloride 104 mmol/L (98-107); Estimated GFR 71; Glucose 95 mg/dL (83-110); Potassium 3.6 mmol/L (3.5-5.1); Sodium 138 mmol/L (136-145)
[2023-08-19 07:37] LABS: Hematocrit 22.7 % (42.0-52.0); Hemoglobin 6.7 g/dL (14.0-18.0)
[2023-08-19] MEDS ORDERED: EPINEPHrine 1 MG/ML AMP IM PRN (07:38)
[2023-08-19] MEDS ORDERED: Furosemide 40 MG/4 ML VIAL SLOW IVP SCH (09:00)
[2023-08-19] MEDS: Rivaroxaban 2.5 MG TAB PO SCH (09:23)
[2023-08-19] MEDS: Ferrous Sulfate 325 MG TAB PO SCH (09:23)
[2023-08-19] MEDS: Tamsulosin HCl 0.4 MG CAP PO SCH (09:24)
[2023-08-19] MEDS: Aspirin 81 mg Enteric Coated Tablet PO SCH (09:24)
[2023-08-19] MEDS: Furosemide 20 MG TAB PO SCH (09:24)
[2023-08-19] MEDS: Famotidine 20 MG TAB PO SCH (09:24)
[2023-08-19 15:39] LABS: Hematocrit 25.5 % (42.0-52.0); Hemoglobin 7.8 g/dL (14.0-18.0)
[2023-08-19] MEDS: Melatonin 3 MG TAB PO PRN (20:13)
[2023-08-19] MEDS: Atorvastatin Calcium 40 MG TAB PO SCH (20:13)
[2023-08-20] MEDS: cefTRIAXone\\ROCEPHIN 1 GM in Sodium Chloride 0.9% 100 ML IVPB SCH (04:20)
[2023-08-20 05:07] LABS: #Eosinphils 0.2 thou/uL (0.0-0.7); #Monocytes 0.8 thou/uL (0.11-0.59); #Neutrophils 3.8 thou/uL (1.40-6.50); %Basophils 0.3 % (0.0-1.0); %Eosinophils 2.9 % (0.0-10.0); %Lymphocytes 26.8 % (21.0-51.0); %Monocytes 12.1 % (0.0-10.0); %Neutrophils 57.6 % (42.0-75.0); Hematocrit 24.2 % (42.0-52.0); Hemoglobin 7.3 g/dL (14.0-18.0); Mean Corpuscular HGB CONC 30.2 g/dL (32.0-36.0); Mean Corpuscular Hemoglobin 26.7 pg (27.0-31.0); Mean Corpuscular Volume 88.6 fl (78.0-98.0); Platelet Count 216 10x3/uL (130-400); Red Blood Cell (RBC) Count 2.73 mill/uL (4.70-6.10); White Blood Cell (WBC) Count 6.6 10x3/uL (4.8-10.8)
[2023-08-20 05:31] LABS: Anion Gap 12 mmol/L (10-20); BUN (Urea Nitrogen) 30 mg/dL (8.4-25.7); Calc. Creatinine Clearance 59 mL/min (70-130); Calcium 8.8 mg/dL (7.8-10.44); Carbon Dioxide 27 mmol/L (23-31); Chloride 104 mmol/L (98-107); Estimated GFR 77; Glucose 88 mg/dL (83-110); Potassium 3.5 mmol/L (3.5-5.1); Sodium 139 mmol/L (136-145)
[2023-08-20] MEDS ORDERED: Potassium Chloride 20 MEQ TAB PO SCH (08:00)
[2023-08-20] MEDS: Famotidine 20 MG TAB PO SCH (09:46)
[2023-08-20] MEDS: Tamsulosin HCl 0.4 MG CAP PO SCH (09:46)
[2023-08-20] MEDS: Furosemide 20 MG TAB PO SCH (09:46)
[2023-08-20] MEDS ORDERED: GoLYTELY 4,000 ml Bottle PO SCH (16:00)
[2023-08-20] MEDS: Atorvastatin Calcium 40 MG TAB PO SCH (21:36)
[2023-08-20 23:11] LABS: #Monocytes 0.9 thou/uL (0.11-0.59); #Neutrophils 5.7 thou/uL (1.40-6.50); %Basophils 0.2 % (0.0-1.0); %Monocytes 9.4 % (0.0-10.0); %Neutrophils 63.2 % (42.0-75.0); Hematocrit 26.6 % (42.0-52.0); Hemoglobin 8.1 g/dL (14.0-18.0); Mean Corpuscular HGB CONC 30.5 g/dL (32.0-36.0); Mean Corpuscular Hemoglobin 27.3 pg (27.0-31.0); Mean Corpuscular Volume 89.6 fl (78.0-98.0); Mean Platelet Volume 10.5 fL (7.4-10.4); Platelet Count 283 10x3/uL (130-400); RBC Distribution Width 19.2 % (11.5-14.5); Red Blood Cell (RBC) Count 2.97 mill/uL (4.70-6.10)
[2023-08-21 04:33] LABS: #Eosinphils 0.1 thou/uL (0.0-0.7); #Monocytes 0.7 thou/uL (0.11-0.59); #Neutrophils 4.2 thou/uL (1.40-6.50); %Basophils 0.3 % (0.0-1.0); %Eosinophils 2.2 % (0.0-10.0); %Lymphocytes 20.9 % (21.0-51.0); %Monocytes 10.7 % (0.0-10.0); %Neutrophils 65.6 % (42.0-75.0); Hematocrit 25.4 % (42.0-52.0); Hemoglobin 7.7 g/dL (14.0-18.0); Mean Corpuscular HGB CONC 30.3 g/dL (32.0-36.0); Mean Corpuscular Hemoglobin 26.8 pg (27.0-31.0); Mean Corpuscular Volume 88.5 fl (78.0-98.0); Mean Platelet Volume 10.3 fL (7.4-10.4); Platelet Count 238 10x3/uL (130-400); Red Blood Cell (RBC) Count 2.87 mill/uL (4.70-6.10); White Blood Cell (WBC) Count 6.4 10x3/uL (4.8-10.8)
[2023-08-21] MEDS ORDERED: PROPOFOL 200 MG/20 ML VIAL ONE (09:53)
[2023-08-21] MEDS ORDERED: Lidocaine 1% PF 5 ML VIAL ONE (09:53)
[2023-08-21] MEDS: Famotidine 20 MG TAB PO SCH (12:23)
[2023-08-21] MEDS: Tamsulosin HCl 0.4 MG CAP PO SCH (12:23)
[2023-08-21] MEDS: Furosemide 20 MG TAB PO SCH (12:23)
[2023-08-21 14:20] LABS: Magnesium 2.1 mg/dL (1.6-2.6)
[2023-08-21] MEDS ORDERED: Pantoprazole 40 MG VIAL IVP SCH (21:00)
[2023-08-21] MEDS: Melatonin 3 MG TAB PO PRN (22:04)
[2023-08-21] MEDS: Atorvastatin Calcium 40 MG TAB PO SCH (22:38)
[2023-08-22 02:56] VITALS: BP 114/58; TEMP 97.8
[2023-08-22] MEDS ORDERED: Ferrous Sulfate 325 MG TAB PO SCH (08:00)
== END 2023-08-22 03:35 | disposition expired ==
LOC: 2NO 07:34
PROVIDERS: ADMIT Family Medicine; ATTEND Internal Medicine Critical Care Medicine
PROC: 30233N1 Transfusion of Nonautologous Red Blood Cells into Peripheral Vein, Percutaneous Approach (ICD-10-PCS; 2023-08-19)
PROC: 0W3P8ZZ Control Bleeding in Gastrointestinal Tract, Via Natural or Artificial Opening Endoscopic (ICD-10-PCS; principal; 2023-08-21)
PROC: 0DBN8ZX Excision of Sigmoid Colon, Via Natural or Artificial Opening Endoscopic, Diagnostic (ICD-10-PCS; 2023-08-21)
PROC: 5A1221J Performance of Cardiac Output, Continuous, Automated (ICD-10-PCS; 2023-08-22)
DX: I11.0 Hypertensive heart disease with heart failure (principal); I21.A1 Myocardial infarction type 2; I50.31 Acute diastolic (congestive) heart failure; J18.9 Pneumonia, unspecified organism; Z66 Do not resuscitate; J96.01 Acute respiratory failure with hypoxia; K31.811 Angiodysplasia of stomach and duodenum with bleeding; N17.9 Acute kidney failure, unspecified; D62 Acute posthemorrhagic anemia; C18.7 Malignant neoplasm of sigmoid colon; I47.19 Other supraventricular tachycardia; H54.40 Blindness, one eye, unspecified eye; I45.10 Unspecified right bundle-branch block; N40.0 Benign prostatic hyperplasia without lower urinary tract symptoms; I73.9 Peripheral vascular disease, unspecified; D32.9 Benign neoplasm of meninges, unspecified; D50.9 Iron deficiency anemia, unspecified; K57.30 Diverticulosis of large intestine without perforation or abscess without bleeding; I65.22 Occlusion and stenosis of left carotid artery; I65.21 Occlusion and stenosis of right carotid artery; K63.5 Polyp of colon; K62.1 Rectal polyp; E78.00 Pure hypercholesterolemia, unspecified; I87.2 Venous insufficiency (chronic) (peripheral); T50.2X5A Adverse effect of carbonic-anhydrase inhibitors, benzothiadiazides and other diuretics, initial encounter; I49.01 Ventricular fibrillation; I46.2 Cardiac arrest due to underlying cardiac condition; Z79.891 Long term (current) use of opiate analgesic; Z79.01 Long term (current) use of anticoagulants; Z79.899 Other long term (current) drug therapy; Z98.890 Other specified postprocedural states; Z87.891 Personal history of nicotine dependence
CPT/HCPCS: 36415; 36416; 36430; 70553; 80048; 80053; 82274; 82378; 82728; 83540; 83550; 83735; 84145; 85025; 85046; 86140; 86850; 86900; 86901; 88305; 93306; A9579; C9113; J0456; J0696; J1650; J1940; J2704; J3475; J3480; J3490; J7050; P9016